=== PATIENT | female | born 1960 | race Caucasian/White ===

== ENCOUNTER 2022-02-01 21:07 | Emergency (ER) | payer OTHER, MEDICAID, SELFPAY ==
[2022-02-01 21:08] VITALS: BP 135/86; PULSE 108; RESP 16; TEMP 36.3; O2SAT 97; BMI 32.1
--- NOTE | 2022-02-01 22:37 | EX.ED.VIS.UR ---
HPI HPI - URI History of Present Illness Chief Complaint: Sore Throat Detail of Chief Complaint: Sore throat x2 days. Informant: patient Onset/Context/Timing Onset: Today and Yesterday Context: Gradual Onset Timing: Continuous Current Severity: Mild Maximum Severity: Mild Worsened by: Not Worsened By Swallowing Relieved by: Not Relieved By Tylenol Associated Symptoms Associated Symptoms: Positive for Diarrhea; Negative for Nasal Congestion, Headache, Sinus Pressure, Myalgias, Nausea, Vomiting, Shortness of Breath, Chest Pain, Nonproductive cough, Hemoptysis or Productive Cough Narrative Narrative: 61-year-old female history of diabetes, [place] with cardiac stent on Plavix and aspirin. Granddaughter started having a sore throat 3 days ago she began having 1 yesterday. Able to swallow. Loose stools yesterday that is since resolved. No cough. No fever. No shortness of breath. Prior similar symptoms: Yes Recent Illness/Hospitalization: No ROS ROS ED ROS Narrative Sore throat. Review of Systems ROS Unobtainable: Denies due to encephalopathy Constitutional Constitutional ED: Denies chills or fever(s) Eyes Eyes: Denies blurry vision ENT ENT ED: Denies ear pain Cardiovascular Cardiovascular: Denies chest pain Respiratory/Chest Respiratory/Chest: Denies cough or dyspnea Gastrointestinal Gastrointestinal: Reports diarrhea; Denies abdominal pain, constipation, melena, nausea or vomiting Genitourinary Genitourinary ED: Denies dysuria or hematuria Musculoskeletal Musculoskeletal: Denies arthralgias or back pain Integumentary Denies abscess or Abrasions Neurologic Neurologic: Denies headache(s) Psychiatric Psychiatric: Denies anxiety Endocrine Endocrinology: Denies cold intolerance Hematologic/Lymphatic Hematologic/Lymphatic: Denies easy bleeding Allergic/Immunologic Allergic/Immunologic ED: Denies mouth swelling, tongue swelling or urticaria PFSH PFSH Allergy/AdvReac Type Severity Reaction Status Date / Time No Known Allergies Allergy Verified 02/01/22 21:08 Social History Smoking Status: Unknown if ever smoked EXAM Physical Exam Narrative Exam Narrative: Well-appearing 61-year-old female. No acute distress. Vital signs are stable and afebrile. Pulse ox 97% on room air no hypoxia. H EENT exam TMs are mildly erythematous bilaterally. Posterior pharynx erythematous with the right tonsil having exudate. No trouble swallowing or breathing. No stridor or drooling. Neck nontender. Trachea midline. No lymphadenopathy. Lungs clear to auscultation bilaterally. Heart regular rhythm no murmur. Abdomen soft nontender. Moving all 4 extremities. Calves are nontender without edema. Neurologically awake alert with no focal motor deficits. Const Vital Signs: 02/01/22 21:08 Temperature 97.3 F L Temperature Source Temporal Pulse Rate 108 H Respiratory Rate 16 Blood Pressure 135/86 H Blood Pressure Mean 102 Pulse Ox 97 Oxygen Delivery Method Room Air Positive well nourished, well developed and obese; Negative for cachectic or contractures General Appearance ED: well developed and NAD; Negative for cachectic, contractures, cyanotic, diaphoretic or pallor Nutritional Appearance: obese; Negative for cachectic HEENT Reports moist mucous membranes; Denies dry mucous membranes HEENT Narrative: Tonsils erythematous. Right with exudate. No abscess. normocephalic and atraumatic; Negative for scalp tenderness Face and Sinus: Negative for sinus tenderness or maxillary instability Mouth ED: No dry mucous membranes Mouth: No dry mucous membranes Teeth and Gingiva: Negative for caries Throat: tonsils abnormal and posterior oropharynx abnormal; Negative for posterior oropharynx normal Eyes PERRL and EOMs intact bilaterally General Eye ED: Negative for pale conjunctiva or scleral icterus Neck no lymphadenopathy, supple, no meningeal signs and no JVD General: Negative for anterior neck swelling Resp normal respiratory effort and clear to auscultation bilaterally Effort and Inspection: Negative for retractions Auscultation: Negative for rales, rhonchi or wheezes Cardio S1 normal heart sound and S2 normal heart sound Rate: regular rate; Negative for bradycardia or tachycardic Rhythm: regular rhythm GI non-tender, non-distended and no masses Inspection: Negative for abdominal distention Auscultation: normoactive bowel sounds Palpation: soft; Negative for tender or guarding Back/Spine no CVA tenderness and normal ROM General Back: Negative for CVA tenderness Cervical Spine: Negative for cervical spine tenderness Thoracic Spine / Upper Back: Negative for thoracic spinal tenderness Lumbar Spine / Lower Back: Negative for lumbar spinal tenderness Sacrum: Negative for tenderness Extremity normal to inspection and full ROM General Extremety ED: Negative for cyanosis or tenderness General Extremity: Negative for cyanosis Neuro oriented x3 Sensorium / Orientation: alert, oriented to person, oriented to place and oriented to time; Negative for orientation impaired, lethargic, stuporous or other Sensory Exam: No sensory level loss detected Motor Exam: strength 5/5 throughout Psych mental status grossly normal Appearance: Negative for other Attitude: No agitated Mood & Affect: Negative for depressed, anxious or tearful Skin General Skin Exam: Negative for jaundice or pallor Lesions: no lesions Rashes: no rashes Trauma: Negative for abrasion MDM MDM MDM Narrative Medical decision making narrative: 61-year-old female with sore throat rapid strep pending. She has mild TM redness bilaterally also. Granddaughter has similar symptoms. Repeat exam unchanged. Both the patient and her granddaughter had negative rapid strep test. They will both be treated as viral pharyngitis. Lab Data Attestation: I reviewed the patient's lab results. Lab results narrative: Rapid strep test negative. Discharge Plan Triage Chief Complaint: Sore Throat ED Provider: Hong Pierre Dx/Rx/DC Orders Clinical Impression: Acute viral pharyngitis Instructions: ED Pharyngitis, Viral Primary Care Provider: Gail Mora Referrals: Gail Mora [Primary Care Provider] - 3-5 Days if not improving Activity Restrictions/Additional Instructions: Rapid strep test was negative. Warm salt water gargling. Motrin and Tylenol for pain. Follow-up if not improving. Disposition Disposition: Home, Self Care
[2022-02-01 23:38] VITALS: BP 141/67; PULSE 82; RESP 15; O2SAT 97
== END 2022-02-01 23:38 | disposition home or self-care (01) ==
PROVIDERS: Emergency Provider Emergency Medicine; PCP Family Medicine; Visit Provider Emergency Medicine
DX: J02.9 Acute pharyngitis, unspecified (principal); E11.9 Type 2 diabetes mellitus without complications; B97.89 Other viral agents as the cause of diseases classified elsewhere; R19.7 Diarrhea, unspecified; B37.0 Candidal stomatitis; E66.9 Obesity, unspecified; Z95.5 Presence of coronary angioplasty implant and graft; Z79.82 Long term (current) use of aspirin; Z79.01 Long term (current) use of anticoagulants
CPT/HCPCS: 87880; 99282